=== PATIENT | female | born 2000 | race Caucasian/White ===

== ENCOUNTER 2020-08-08 03:13 | Observation (INO) | payer OTHER ==
[2020-08-08] MEDS ORDERED: SODIUM CHLORIDE 0.9% 500 ML 500 ML IV STA (03:37)
[2020-08-08] MEDS ORDERED: HYDROmorphone 0.5 MG/0.5 ML SYRINGE IVP STA (03:37)
[2020-08-08 04:08] LABS: Appearance,Urine Clear (Clear); Bilirubin,Urine Negative (Negative); Blood,Urine Negative (Negative); Color,Urine Yellow; Glucose,Urine (UA) Negative (Negative); Ketones,Urine Negative (Negative); Leukocyte Esterase,Urine Trace (Negative); Nitrite,Urine Negative (Negative); Protein,Urine Negative (Negative); RBC,Urine <1 /hpf (0-5); Specific Gravity,Urine 1.013 (1.001-1.035); Squamous Epithelial Cell,Urine <1 /hpf (0-4); Urobilinogen,Urine <2.0 mg/dL (<2.0); WBC,Urine 3 /hpf (0-5)
[2020-08-08 04:21] LABS: ALT 74 U/L (4-34); AST 173 U/L (14-36); African American GFR (CKD) >90 (>60 ml/min/1.73 sqM); Albumin 4.3 g/dL (3.5-5.0); Alkaline Phosphatase 102 U/L (38-126); Amylase 35 U/L (30-110); Anion Gap 11 mmol/L; Blood Urea Nitrogen 9 mg/dL (7-17); Calcium 11.2 mg/dL (8.4-10.2); Carbon Dioxide 25 mmol/L (22-30); Chloride 101 mmol/L (98-107); Glucose 113 mg/dL (74-99); Lipase 68 U/L (23-300); Non-African American GFR(CKD) >90 (>60 ml/min/1.73 sqM); Sodium 137 mmol/L (137-145); Total Bilirubin 2.4 mg/dL (0.2-1.3)
[2020-08-08 04:32] LABS: Basophils % (A) 0 %; Eosinophils # (A) 0.2 k/uL (0-0.7); Eosinophils % (A) 2 %; HGB 13.6 gm/dL (11.4-16.0); Lymphocytes # (A) 1.3 k/uL (1.0-4.8); Lymphocytes % (A) 17 %; MCH 28.9 pg (25.0-35.0); MCHC 34.8 g/dL (31.0-37.0); MCV 83.1 fL (80.0-100.0); Mean Platelet Volume 9.3; Monocytes # (A) 0.4 k/uL (0-1.0); Monocytes % (A) 5 %; Neutrophils # (A) 5.7 k/uL (1.3-7.7); Neutrophils % (A) 75 %; Platelet Count 127 k/uL (150-450); RDW 13.8 % (11.5-15.5); WBC 7.5 k/uL (3.8-10.6)
[2020-08-08] MEDS ORDERED: NALOXONE 0.4 MG/ML 1 ML VIAL IV PRN (06:04)
[2020-08-08] MEDS ORDERED: HYDROmorphone 0.5 MG/0.5 ML SYRINGE IVP PRN (06:45)
[2020-08-08] MEDS: SODIUM CHLORIDE 0.9% 1,000 ML IV SCH ×3 (07:33→21:36)
--- NOTE | 2020-08-08 11:46 | P.GSCN ---
History of Present Illness Consult date: 08/08/20 Reason for Consult: Choledocholithiasis History of present illness: 20-year-old female known to our service. Patient with history of right upper quadrant pain and HIDA scan showing a low ejection fraction of 9%. Ultrasound showed no evidence of gallstones previously. There was a positive Watkins sign however when her last ultrasound was performed. She is currently scheduled for cholecystectomy 08/18. Came to the ER yesterday with increasing right upper quadrant pain. Some nausea but no vomiting. Labs in the ER revealed elevated bilirubin ALT and AST. No imaging performed. Patient says her pain is still present. Review of Systems The patient denies any acute changes in vision or hearing, no dysphagia or odynophagia, no chest pain or shortness of breath, no dysuria or hematuria, no headache, no runny nose, no rectal bleeding or melena, no unexplained weight loss Past Medical History Additional Past Medical History / Comment(s): speach and vision impairment History of Any Multi-Drug Resistant Organisms: None Reported Past Surgical History: Adenoidectomy, Appendectomy, Ear Surgery Past Psychological History: Anxiety Smoking Status: Never smoker Past Alcohol Use History: None Reported Past Drug Use History: None Reported Medications and Allergies Home Medications Medication Instructions Recorded Confirmed Type Norgestimate-Ethinyl Estradiol 1 tab PO DAILY 08/08/20 08/08/20 History [Sprintec 28 Day Tablet] Allergies Allergy/AdvReac Type Severity Reaction Status Date / Time amoxicillin Allergy Unknown Verified 08/08/20 06:21 chocolate flavor Allergy Unknown Verified 08/08/20 06:21 sulfamethoxazole Allergy Rash/Hives Verified 08/08/20 06:21 [From Bactrim] trimethoprim [From Bactrim] Allergy Rash/Hives Verified 08/08/20 06:21 Penicillins AdvReac Nausea & Verified 08/08/20 06:21 Vomiting Surgical - Exam Vital Signs Temp Pulse Resp BP Pulse Ox 98.6 F 93 18 137/81 97 08/08/20 03:16 08/08/20 03:16 08/08/20 03:16 08/08/20 03:16 08/08/20 03:16 Physical exam: General: Well-developed, well-nourished HEENT: Normocephalic, sclerae nonicteric Abdomen: Mild right upper quadrant tenderness, nondistended Extremities: No edema Neuro: Alert and oriented Results - Labs 08/08/20 03:59 08/08/20 03:59 Abnormal Lab Results - Last 24 Hours (Table) 08/08/20 08/08/20 08/08/20 Range/Units 03:59 03:59 03:59 Plt Count 127 L (150-450) k/uL Glucose 113 H (74-99) mg/dL Calcium 11.2 H (8.4-10.2) mg/dL Total Bilirubin 2.4 H (0.2-1.3) mg/dL AST 173 H (14-36) U/L ALT 74 H (4-34) U/L Ur Leukocyte Esterase Trace H (Negative) Diabetes panel 08/08/20 Range/Units 03:59 Sodium 137 (137-145) mmol/L Potassium 4.0 (3.5-5.1) mmol/L Chloride 101 (98-107) mmol/L Carbon Dioxide 25 (22-30) mmol/L BUN 9 (7-17) mg/dL Creatinine 0.57 (0.52-1.04) mg/dL Glucose 113 H (74-99) mg/dL Calcium 11.2 H (8.4-10.2) mg/dL AST 173 H (14-36) U/L ALT 74 H (4-34) U/L Alkaline Phosphatase 102 (38-126) U/L Total Protein 7.0 (6.3-8.2) g/dL Albumin 4.3 (3.5-5.0) g/dL Calcium panel 08/08/20 Range/Units 03:59 Calcium 11.2 H (8.4-10.2) mg/dL Albumin 4.3 (3.5-5.0) g/dL Pituitary panel 08/08/20 Range/Units 03:59 Sodium 137 (137-145) mmol/L Potassium 4.0 (3.5-5.1) mmol/L Chloride 101 (98-107) mmol/L Carbon Dioxide 25 (22-30) mmol/L BUN 9 (7-17) mg/dL Creatinine 0.57 (0.52-1.04) mg/dL Glucose 113 H (74-99) mg/dL Calcium 11.2 H (8.4-10.2) mg/dL Adrenal panel 08/08/20 Range/Units 03:59 Sodium 137 (137-145) mmol/L Potassium 4.0 (3.5-5.1) mmol/L Chloride 101 (98-107) mmol/L Carbon Dioxide 25 (22-30) mmol/L BUN 9 (7-17) mg/dL Creatinine 0.57 (0.52-1.04) mg/dL Glucose 113 H (74-99) mg/dL Calcium 11.2 H (8.4-10.2) mg/dL Total Bilirubin 2.4 H (0.2-1.3) mg/dL AST 173 H (14-36) U/L ALT 74 H (4-34) U/L Alkaline Phosphatase 102 (38-126) U/L Total Protein 7.0 (6.3-8.2) g/dL Albumin 4.3 (3.5-5.0) g/dL Assessment and Plan (1) Choledocholithiasis with cholecystitis Narrative/Plan: 20-year-old female with elevated liver enzymes and right upper quadrant pain. Suspect choledocholithiasis with cholecystitis despite prior ultrasound showing no gallstones. MRCP ordered at this time. Possible GI consult after MRCP results reviewed. Current Visit: Yes Status: Acute Code(s): K80.40 - CALCULUS OF BILE DUCT W CHOLECYSTITIS, UNSP, W/O OBSTRUCTION SNOMED Code(s): 84564236
--- NOTE | 2020-08-08 12:18 | MR ---
EXAMINATION TYPE: MR MRCP DATE OF EXAM: 08/08/2020 COMPARISON: None HISTORY: cholethiasis, elevated LFTs Standard multiplanar, multisequence MRI departmental protocol Multiplanar, multisequence MRCP images were acquired. FINDINGS: Gallbladder is collapsed and are suspicious for tiny gallstones and probable pericholecystic fluid co rrelate for cholecystitis. Recommend ultrasound given the collapsed state of the gallbladder. Adrenal glands are normal morphology. Kidneys demonstrate no hydronephrosis. Aorta of normal caliber. Bowel gas pattern nonspecific. Small accessory spleen noted. Visualized pancreas has a normal appear ance. MRCP images are degraded by motion artifact no obvious extrahepatic biliary dilation or intrahepatic large dilation IMPRESSION: 1. Abnormal appearance of the gallbladder which appears to be collapsed and contains small gallstone s. Suspect pericholecystic fluid and acute cholecystitis. Given limitation of the exam and motion art ifact recommend ultrasound.
[2020-08-08] MEDS: PANTOPRAZOLE 40 MG/10 ML VIAL IV SCH (15:04)
[2020-08-08] MEDS: LEVOFLOXACIN 500MG-D5W PMX 500 MG in DEXTROSE/WATER 1 100ML.BAG IVPB SCH (15:04)
[2020-08-08] MEDS ORDERED: IV FLUID CONTINUATION 200 ML IV ONE (16:48)
[2020-08-08] MEDS ORDERED: ONDANSETRON 4 MG/2 ML VIAL ONE (16:54)
[2020-08-08] MEDS ORDERED: ONDANSETRON 4 MG/2 ML VIAL IVP ONE (17:01)
[2020-08-08] MEDS ORDERED: DEXAMETHASONE SOD PHOSPHATE 4 MG/ML 1 ML VIAL IV ONE (17:01)
[2020-08-08] MEDS ORDERED: HEPARIN SODIUM,PORCINE 5,000 UNIT/ML 1 ML VIAL ONE (17:03)
[2020-08-08] MEDS ORDERED: HEPARIN SODIUM,PORCINE 5,000 UNIT/ML 1 ML VIAL SQ ONE (17:05)
[2020-08-08] MEDS ORDERED: ACETAMINOPHEN IV (For NPO) 1,000 MG/100 ML VIAL IVPB ONE (17:20)
[2020-08-08] MEDS ORDERED: HYDROmorphone 0.5 MG/0.5 ML SYRINGE IVP ONE (17:30)
[2020-08-08] MEDS ORDERED: ROCURONIUM 10 MG/ML (5 ML VIAL) IV ONE (17:45)
[2020-08-08] MEDS ORDERED: GLYCOPYRROLATE 0.2 MG/ML 2 ML VIAL ONE (17:45)
[2020-08-08] MEDS ORDERED: KETOROLAC 15 MG/ML 1 ML VIAL ONE (17:45)
[2020-08-08] MEDS ORDERED: NEOSTIGMINE 1 MG/ML 10 ML VIAL ONE (17:45)
[2020-08-08] MEDS ORDERED: PROPOFOL 10 MG/ML 20 ML VIAL IV ONE (17:45)
[2020-08-08] MEDS ORDERED: ePHEDrine SULFATE/0.9% NACL/PF 50 MG/5 ML SYRINGE IV ONE (17:45)
[2020-08-08] MEDS ORDERED: SUCCINYLCHOLINE CHLORIDE 100 MG/5 ML SYR IV ONE (17:45)
[2020-08-08] MEDS ORDERED: HYDROmorphone (PF) 1 MG/ML ONE (17:45)
[2020-08-08] MEDS ORDERED: MIDAZOLAM 2 MG/2 ML VIAL ONE (17:45)
[2020-08-08] MEDS ORDERED: LIDOCAINE 1% INJ 10MG/ML (20 ML MDV) ONE (17:45)
[2020-08-08] MEDS ORDERED: fentaNYL (PF) 50 MCG/ML 2 ML AMP ONE (17:45)
[2020-08-08] MEDS ORDERED: LACTATED RINGERS 1,000 ML IV ONE (18:00)
[2020-08-08] MEDS ORDERED: BUPIVACAINE (PF) 0.25% 30 ML VIAL SQ ONE ×2 (18:08)
--- NOTE | 2020-08-08 19:01 | P.OP ---
Date of Procedure: 08/08/20 Procedure(s) Performed: PREOPERATIVE DIAGNOSIS: Acute cholecystitis POSTOPERATIVE DIAGNOSIS: Same PROCEDURE: Laparoscopic cholecystectomy SURGEON: Ebenezer EBL: Minimal see anesthesia record ANESTHESIA: Gen. COMPLICATIONS: None OPERATIVE PROCEDURE: The patient was brought and placed on the operating room table in the supine position. The patient was placed under general anesthesia at that time. The abdomen was prepped and draped in the usual sterile fashion. A small vertical infraumbilical incision was made. The fascia was grasped with the Connie forceps. The fascia was retracted anteriorly. The Veress needle was advanced into the peritoneal cavity. The saline drop test was abnormal. I aborted that site. A 5 mm optical trocar was then used in the left upper quadrant at the previous scar site likely from her previous appendectomy. Entrance into the peritoneal cavity occurred without difficulty from that location. Insufflation took place up to 15 mmHg. the umbilical site was inspected. I could not see any suggestion that the Veress needle was advanced through that area. A 5 mm optical trocar was advanced and the peritoneal cavity at the umbilicus. 2 additional 5 mm trochars were placed in the right upper quadrant under direct visualization. A 12 mm trocar was advanced into the previously made left upper quadrant incision site. The gallbladder was retracted superiorly and laterally. The gallbladder was acutely inflamed with a thickened wall and edema present. The peritoneum overlying the infundibulum was bluntly dissected. The patient's cystic duct was visualized. The junction between the cystic duct common and hepatic duct was identified. The cystic duct was then divided after placement of 3 12 mm clips on the patient's side and one on the specimen side. The cystic artery was identified and clipped as well. A small vessel was seen along the gallbladder fossa and clipped as well. The gallbladder was then removed from the liver bed using electrocautery. The gallbladder was then removed from the epigastric trocar site with an Endo Catch bag. The gallbladder fossa was irrigated with saline. There was no evidence of any bleeding or biliary drainage seen. I did place a drain in the gallbladder fossa exiting from the most lateral 5 mm right upper quadrant trocar site. This was sutured to the skin using a 3-0 silk stitch. The fascia at the 12 millimeter site was closed using a MakennaKristen 0 Vicryl stitch. The trochars were then removed. The skin at all 3 sites was closed using a 4-0 Monocryl stitch. Skin glue was utilized on the incision sites. At the end of this procedure the sponge and needle counts were correct. DISPOSITION: Stable to the recovery room
[2020-08-08] MEDS: HYDROcodone/APAP 5-325MG 1 EACH TAB PO PRN (21:42)
[2020-08-09] MEDS: KETOROLAC 15 MG/ML 1 ML VIAL IVP SCH ×3 (00:01→13:07)
[2020-08-09] MEDS: SODIUM CHLORIDE 0.9% 1,000 ML IV SCH ×2 (04:21→16:02)
[2020-08-09] MEDS: PANTOPRAZOLE 40 MG/10 ML VIAL IV SCH (08:28)
[2020-08-09] MEDS: HYDROcodone/APAP 5-325MG 1 EACH TAB PO PRN (08:28)
[2020-08-09] MEDS: HEPARIN SODIUM,PORCINE 5,000 UNIT/ML 1 ML VIAL SQ SCH ×3 (08:28→15:59)
[2020-08-09 09:01] LABS: Basophils # (A) 0.01 X 10*3/uL (0.00-0.10); Basophils % (A) 0.1 %; Eosinophils # (A) 0 X 10*3/uL (0.04-0.35); Eosinophils % (A) 0 %; HCT 40.5 % (37.2-46.3); HGB 12.7 g/dL (12.0-15.0); Lymphocytes # (A) 0.99 X 10*3/uL (0.90-5.00); Lymphocytes % (A) 9.6 %; MCHC 31.4 g/dL (32.0-37.0); MCV 89.4 fL (80.0-97.0); Mean Platelet Volume 9.5 fL (9.5-12.2); Monocytes # (A) 0.43 X 10*3/uL (0.20-1.00); Monocytes % (A) 4.2 %; Neutrophils # (A) 8.88 X 10*3/uL (1.80-7.70); Neutrophils % (A) 85.8 %; Platelet Count 372 X 10*3/uL (140-440); RBC 4.53 X 10*6/uL (4.10-5.20); RDW 13.7 % (11.5-14.5); WBC 10.34 X 10*3/uL (4.50-10.00)
--- NOTE | 2020-08-09 09:11 | P.PN ---
Subjective Progress Note Date: 08/09/20 Principal diagnosis: Cholecystitis Patient seems to be doing slightly better today. Still having soreness upper abdomen but says it is better than it was preoperatively. GATO drain is serosanguineous. Morning labs pending. Objective - Vital Signs Vital signs: Vital Signs Temp 98.0 F 08/09/20 07:00 Pulse 81 08/09/20 07:00 Resp 16 08/09/20 07:00 BP 101/64 08/09/20 07:00 Pulse Ox 97 08/09/20 07:00 Intake & Output 08/08/20 08/09/20 08/09/20 18:59 06:59 18:59 Intake Total 1000 0 Output Total 10 45 Balance 990 -45 Weight 97.522 kg Intake: IV 1000 0 Output: Drainage 45 Right Lower 45 Estimated Blood Loss 10 Other: Voiding Method Toilet # Voids 1 1 - Exam Abdomen: Soft, nondistended, incisions clean and dry, mild tenderness, GATO serosanguineous - Labs CBC & Chem 7: 08/09/20 06:35 08/08/20 03:59 Labs: Abnormal Lab Results - Last 24 Hours (Table) 08/09/20 Range/Units 06:35 WBC 10.34 H (4.50-10.00) X 10*3/uL MCHC 31.4 L (32.0-37.0) g/dL Neutrophils # 8.88 H (1.80-7.70) X 10*3/uL Eosinophils # 0 L (0.04-0.35) X 10*3/uL Assessment and Plan (1) Choledocholithiasis with cholecystitis Narrative/Plan: Patient clinically improving. Continue advancing diet. Possible discharge later today with drain if doing well. Current Visit: Yes Status: Acute Code(s): K80.40 - CALCULUS OF BILE DUCT W CHOLECYSTITIS, UNSP, W/O OBSTRUCTION SNOMED Code(s): 23121983
[2020-08-09 09:27] LABS: Albumin 4.2 g/dL (3.80-4.90); Albumin/Globulin Ratio 2.63 (1.60-3.17); Anion Gap 9.7 mmol/L (4.00-12.00); BUN/Creat Ratio 16.67 Ratio (12.00-20.00); Calcium 8.9 mg/dL (8.7-10.3); Carbon Dioxide 22.3 mmol/L (21.6-31.8); Globulin 1.6 g/dL (1.6-3.3); Non-African American GFR(CKD) 129.4 (60.0-200.0); Potassium 4.7 mmol/L (3.5-5.5); Total Bilirubin 1.2 mg/dL (0.2-1.2); Total Protein 5.8 g/dL (6.2-8.2)
[2020-08-09] MEDS: LEVOFLOXACIN 500MG-D5W PMX 500 MG in DEXTROSE/WATER 1 100ML.BAG IVPB SCH (15:16)
[2020-08-09 15:21] VITALS: BP 119/72; PULSE 83; RESP 18; TEMP 98.4
--- NOTE | 2020-08-09 16:43 | P.DS ---
Providers Date of admission: 08/08/20 06:04 Expected date of discharge: 08/09/20 Attending physician: Meir Sol Primary care physician: Dmitriy Sharp - Discharge Diagnosis(es) (1) Choledocholithiasis with cholecystitis Patient admitted through the ER with complaints of right upper quadrant pain. Was previously scheduled for cholecystectomy 08/18. Elevated liver enzymes on admission. MRCP ordered showing no biliary obstruction with acute cholecystitis present. Underwent laparoscopic cholecystectomy yesterday. Doing well today. Drain serosanguineous. Would like to go home. We'll discharge today. Follow- up one week. Current Visit: Yes Status: Acute Plan - Discharge Summary Discharge Rx Participant: No New Discharge Prescriptions: New HYDROcodone/APAP 5-325MG [Dunbar 5-325] 1 tab PO Q6HR PRN 3 Days #6 tab PRN Reason: Analgesia No Action Norgestimate-Ethinyl Estradiol [Sprintec 28 Day Tablet] 1 tab PO DAILY Discharge Medication List Norgestimate-Ethinyl Estradiol [Sprintec 28 Day Tablet] 1 tab PO DAILY 08/08/20 [History] HYDROcodone/APAP 5-325MG [Dunbar 5-325] 1 tab PO Q6HR PRN 3 Days #6 tab 08/09/20 [Rx] Follow up Appointment(s)/Referral(s): Meir Sol MD [Medical Doctor] - 1 Week Dmitriy Sharp MD [Primary Care Provider] - 1 Week
== END 2020-08-09 17:53 | disposition home or self-care (01) ==
LOC: EC 03:13 → 6NMEDSUR 06:04
PROVIDERS: ADMIT Surgery; ATTEND Surgery
DX: K80.12 Calculus of gallbladder with acute and chronic cholecystitis without obstruction (principal); F41.9 Anxiety disorder, unspecified; H54.7 Unspecified visual loss; R47.9 Unspecified speech disturbances; Z90.49 Acquired absence of other specified parts of digestive tract; Z79.3 Long term (current) use of hormonal contraceptives; Z88.0 Allergy status to penicillin; Z88.2 Allergy status to sulfonamides; Z91.02 Food additives allergy status; Z20.822 Contact with and (suspected) exposure to COVID-19
CPT/HCPCS: 36415; 81025 ×2; 88304; 80053 ×2; 82150; 83690; 85025 ×2; 81001; 87635; 74181; 47562; G0378 ×2; J2250; J1644 ×2; J1100; J2710; J2405; J1956 ×2; J2001; J3010; J1170 ×2; J0131; J1885 ×2; J0330; J2704; C9113 ×2